=== PATIENT | male | born 1990 | race Caucasian/White ===

== ENCOUNTER 2021-01-10 07:08 | Day surgery (SDC) | payer OTHER ==
[~2021-01-10] VITALS: Ht 180.3 cm; Wt 100.0 kg
[2021-01-10] VITALS (7 sets, daily range): BP systolic 98–123; BP diastolic 57–75
--- NOTE | 2021-01-10 07:30 | NUR ---
PATIENT ARRIVED TO FLOOR ESCORTED BY SPIKE MELCHOR. RN REHAB DONE BY THIS EDY SEE INTERVENTIONS AT THIS TIME. VITAL SIGNS OBTAINED SEE INTERVETNIOS ALLERGY BRACELET PLACE DUE TO ALLERGY TO HAZELNUTS. LUNG LOUIS ARE CLEAR PATIENT IS ALERT AND ORIENTED AT THIS TIME AND IS CALM. ARABELLA MELCHOR OBTAINED CONSENTS AT THIS TIME. SIDERAILS ARE UP X 2 CALL LIGHT IS WITHIN REACH.
[2021-01-10 11:27] LABS: HEMATOCRIT 38.9 % (39.0-50.0); HEMOGLOBIN 12.9 g/dl (14.0-18.0); IMMATURE GRANULOCYTES 0.2 % (0.0-5.0); MEAN CELL VOLUME 91.7 fL CALC (80.0-100.0); MEAN CORPUSCULAR HGB 30.4 pG CALC (26.0-32.0); MEAN CORPUSCULAR HGB CONC 33.2 g/dL CAL (32.0-36.0); NEUT# 3.21 thou/uL (1.82-7.42); RED BLOOD COUNT 4.24 mill/uL (4.70-6.10); RED CELL DISTRI WIDTH 12.9 % (11.5-15.5)
[2021-01-10 11:37] LABS: ALKALINE PHOSPHATASE 93 u/l (38-126); ANION GAP 10 (6-22 (CALC)); BILIRUBIN, TOTAL 0.5 mg/dL (0.0-1.4); BUN 14 mg/dL (9-20); BUN/CREATININE RATIO 23 (12-20 (CALC)); CARBON DIOXIDE 28 mmol/l (22-30); CHLORIDE 101 mmol/l (95-108); CREATININE 0.6 mg/dL (0.7-1.3); GFR > 60 ML/MIN (>=60 (CALC)); GFR FOR AFR.AMER. > 60 ML/MIN (>=60 (CALC)); POTASSIUM 4.5 mmol/l (3.5-5.1); SGOT/AST 63 u/l (17-59); SODIUM 135 mmol/l (137-146); TOTAL PROTEIN 6.9 g/dL (6.3-8.2)
--- NOTE | 2021-01-10 12:18 | NUR ---
PATIENT LAYING IN BED AT THIS TIME DENEIS ANY NEEDS WAITING ON ANR PROCEEDURE. SIDERAILS ARE UP CALL LIGHT WITHIN REACH.
--- NOTE | 2021-01-10 13:55 | NUR ---
PATIENT TAKEN DOWN TO TRAUMA ROOM FOR ANR PROCEEDURE AT THIS TIME ACCOMPANIED BY DR. CESPEDES AND RUIZ RN AT THIS TIME.
--- NOTE | 2021-01-10 15:54 | NUR ---
PATIENT REMAINS DOWN IN ANR PROCEEDURE.
--- NOTE | 2021-01-10 18:23 | NUR ---
PATIENT REMAINS IN ANR PROCEEDURE AT THIS TIME.
[2021-01-11 04:00] VITALS: BP 124/61
--- NOTE | 2021-01-11 07:00 | NUR ---
PATIENT LAYING IN BED AT THIS TIME ALL FOUR SIDERAILS ARE UP PER ANR PROCEEDURE. CAP INSPECTOR DONE SEE INTERVENTIONS. PATIENT DENIES PAIN OR OTHER NEEDS AT THIS TIME. RESPIRATIONS ARE EASY AND UNLABORED AND PATIENT IS ALERT AND ORIENTED.
[2021-01-11 07:55] VITALS: BP 88/45
--- NOTE | 2021-01-11 11:56 | NUR ---
PATIETN RESTING IN BED AT THIS TIME RESPIRATIONS EASY AND UNLABORED SIDERAILS ARE UP X 2 CALL LIGHT IS WITHIN REACH.
--- NOTE | 2021-01-11 12:45 | NUR ---
RUIZ AND CARMEN RN'S WITH ANR REQUEST [address] ARNOLD TO WRITE D/C PRESCRIPTIONS. 3 SHEETS WERE PULLED AND HANDED TO CARMEN AT THIS TIME.
[2021-01-11 14:55] VITALS: BP 108/55
--- NOTE | 2021-01-11 16:41 | NUR ---
PATIENT RESTING IN BED AFTER SHOWER. PATIENT DENIES ANY PAIN JUST STATES HE IS "SLEEPY" AT THIS TIME. PATIENT AWAITING D/C AT THIS TIME. IV REMOVED NO OTHER NEEDS NOTED.
--- NOTE | 2021-01-11 17:57 | NUR ---
Discharge instructions given. Patient verbalizes understanding of same. Discharged in stable condition via Wheelchair to Home with *Other. All belongings sent with pt. PATIENT D/C AT THIS TIME PATIENT WHEELCHAIRED OUT BY ANR NURSE MELCHOR
== END 2021-01-11 18:00 | disposition home or self-care (01) | DRG 897 ==
LOC: ANR 07:08 → MS2 07:10 → ANR 10:27
PROVIDERS: ATTEND Anesthesiology
DX: F11.20 Opioid dependence, uncomplicated (principal)
CPT/HCPCS: J2060; J2354